=== PATIENT | female | born 1970 | race Caucasian/White ===

== ENCOUNTER 2019-01-11 15:11 | Observation (INO) ==
[2019-01-11] MEDS ORDERED: *HR* OxyCODONE Immed Rel 5 MG TABLET PO PRN (15:17)
[2019-01-11] MEDS ORDERED: Ondansetron 4 MG/2 ML VIAL IVP PRN (15:17)
[2019-01-11] MEDS ORDERED: Acetaminophen 325 MG TABLET PO PRN (15:17)
[2019-01-11] MEDS ORDERED: *HR* HYDROcodone/Acet 5/325 mg TABLET PO PRN (15:17)
[2019-01-11] MEDS ORDERED: OXYCODONE Oral CONC 10 MG/0.5 ML ORAL.SYG SL PRN ×2 (15:17)
[2019-01-11] MEDS ORDERED: Naloxone 0.4 MG/ML INJ IVP PRN (15:17)
[2019-01-11] MEDS ORDERED: tiZANidine 4 MG TABLET PO PRN (15:26)
[2019-01-11] MEDS ORDERED: 0.9 % Sodium Chloride 1,000 ML IVC SCH (15:30)
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
[2019-01-11] MEDS ORDERED: cefTRIAXone 1,000 MG in Water for inj. (sterile) 20 ML 10 ML IVP SCH (16:00)
[2019-01-11] MEDS ORDERED: *HR* Metformin 500 MG TABLET PO SCH (17:00)
[2019-01-11] MEDS ORDERED: *HR* LORazepam 0.5 MG TABLET PO SCH (21:00)
[2019-01-11] MEDS ORDERED: Gabapentin 100 MG CAPSULE PO SCH (21:00)
[2019-01-11] MEDS ORDERED: Budesonide/Formoterol 80/4.5 MDI IH SCH (22:00)
[2019-01-12 02:20] LABS: Basophils # 0.1 K/mcL (0.0-0.2); Basophils % 0.7 %; Eosinophils # 0.3 K/mcL (0.0-0.6); Eosinophils % 2.8 %; Hematocrit 35.3 % (35.3-44.9); Hemoglobin 10.7 g/dL (11.5-15.4); Immature Granulocytes % 0.3 % (0-4); Lymphocytes # 3.6 K/mcL (0.6-4.6); Lymphocytes % 37.7 %; Mean Corpuscular HGB Conc 30.3 g/dL (31.6-35.5); Mean Corpuscular Hemoglobin 23.5 pg (28.0-33.3); Mean Corpuscular Volume 77.6 fL (83.0-100.0); Monocytes # 0.9 K/mcL (0.0-1.3); Neutrophils # 4.8 K/mcL (1.6-8.9); Platelet Count 313 K/mcL (140-400); Red Blood Count 4.55 M/mcL (3.82-4.97); Red Cell Distribution Width 16.6 % (11.5-14.5); Segmented Neutrophils % 49.5 %; White Blood Count 9.6 K/mcL (4.3-11.1)
[2019-01-12 02:39] LABS: BUN/Creatinine Ratio 21 (6-26); Blood Urea Nitrogen 17 mg/dL (6-20); Calcium 8.7 mg/dL (8.6-10.3); Carbon Dioxide 24 mEq/L (23-29); Chloride 105 mEq/L (98-107); Glucose 105 mg/dL (70-105); Osmolality,Calculated 286 (280-300); Potassium 4.1 mEq/L (3.5-5.1); Sodium 137 mEq/L (136-145); eGFR For African Americans > 60 (> 60); eGFR For Non-African Americans > 60 (> 60)
--- NOTE | 2019-01-12 05:52 | Urology Progress Note ---
Date of Encounter: 01/12/19 Time of Encounter: 05:50 - Assessment and Plan (1) Ureteral stone Current Visit: No Status: Acute Assessment and plan: 48-year-old woman with a distal left ureteral stone. She is still having pain. We will proceed with a left ureteroscopy, laser lithotripsy, and stent placement. She was informed of the risks of the procedure including but not limited to bleeding, infection, injury to other structures, need for further procedures, stent irritation, incomplete fragmentation, ureteral perforation, need for nephrostomy tube, need for open repair, risks unforeseen, and the risk of anesthesia. She is willing to proceed. Progress Note Narrative: Hospital day #2. 48-year-old woman with left distal ureteral stone. I reviewed her KUB. It is difficult to ascertain a ureteral stone versus phlebolith in the pelvis. She is still having pain. Plan for left ureteroscopy, laser lithotripsy, and stent placement today. Objective Initial Vital Signs Pulse Ox 97 01/11/19 18:30 - General physical appearance Present: well developed, well nourished, no distress - Respiratory Present: normal respiratory effort - Abdomen Present: soft - Musculoskeletal Present: normal posture - Labs 01/12/19 02:00 01/12/19 02:00 Diabetes panel 01/12/19 Range/Units 02:00 Sodium 137 (136-145) mEq/L Potassium 4.1 (3.5-5.1) mEq/L Chloride 105 (98-107) mEq/L Carbon Dioxide 24 (23-29) mEq/L BUN 17 (6-20) mg/dL Creatinine 0.82 (0.60-1.20) mg/dL Glucose 105 (70-105) mg/dL Calcium 8.7 (8.6-10.3) mg/dL Calcium panel 01/12/19 Range/Units 02:00 Calcium 8.7 (8.6-10.3) mg/dL Pituitary panel 01/12/19 Range/Units 02:00 Sodium 137 (136-145) mEq/L Potassium 4.1 (3.5-5.1) mEq/L Chloride 105 (98-107) mEq/L Carbon Dioxide 24 (23-29) mEq/L BUN 17 (6-20) mg/dL Creatinine 0.82 (0.60-1.20) mg/dL Glucose 105 (70-105) mg/dL Calcium 8.7 (8.6-10.3) mg/dL Adrenal panel 01/12/19 Range/Units 02:00 Sodium 137 (136-145) mEq/L Potassium 4.1 (3.5-5.1) mEq/L Chloride 105 (98-107) mEq/L Carbon Dioxide 24 (23-29) mEq/L BUN 17 (6-20) mg/dL Creatinine 0.82 (0.60-1.20) mg/dL Glucose 105 (70-105) mg/dL Calcium 8.7 (8.6-10.3) mg/dL Consult Discharge Plan - Plan Referrals: NONE,PCP [Primary Care Provider] -
[2019-01-12 06:22] LABS: Bilirubin,Urine Negative (Negative); Blood,Urine Negative (Negative); Clarity,Urine Clear (Clear); Color,Urine Yellow (Yellow); Glucose,Urine (UA) Normal (Normal); Ketones,Urine Negative (Negative); Leukocyte Esterase,Urine Negative (Negative); Nitrite,Urine Negative (Negative); Protein,Urine Negative (Neg-Trace); Specific Gravity,Urine 1.027 (1.010-1.025); Urobilinogen,Urine Normal (Normal)
[2019-01-12] MEDS ORDERED: *HR* FentaNYL (PF) 100 MCG/2 ML VIAL ONE ×2 (07:21→08:46)
[2019-01-12] MEDS ORDERED: *HR* Propofol 200 MG/20 ML VIAL IVP ONE ×2 (07:21→07:22)
[2019-01-12] MEDS ORDERED: Lidocaine -MPF 2% 2 ML VIAL ONE (07:21)
[2019-01-12] MEDS ORDERED: Dexamethasone 4 MG/ML VIAL ONE (07:21)
[2019-01-12] MEDS ORDERED: Ondansetron 4 MG/2 ML VIAL ONE (07:21)
[2019-01-12] MEDS ORDERED: *HR* Succinylcholine 200 MG/10 ML VIAL IVP ONE (07:22)
[2019-01-12] MEDS ORDERED: *HR* Rocuronium Bromide 50 MG/5 ML VIAL ONE (07:22)
[2019-01-12] MEDS ORDERED: Lidocaine -MPF 4% 5 ML AMPUL ONE (07:25)
[2019-01-12] MEDS ORDERED: Ipratropium/Albuterol Neb 3 ML ONE (07:40)
[2019-01-12] MEDS ORDERED: Ipratropium/Albuterol Neb 3 ML IH ONE (07:42)
--- NOTE | 2019-01-12 07:42 | Anesthesia Evaluation PreOp ---
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 (Migraines, Anxiety/Depression) Other Medical History: Diabetes Type II ("Pre-Diabetes"), GERD, Other (MO) Anesthesia History: Past Anesthesia (Appy, Minerva, L-ectopic , Esophageal Dilation 10/2018) Alcohol Use: none Drug use: none Medications and Allergies Acetaminophen [Tylenol] 500 mg PO Q6HR PRN 05/01/17 [History] Cetirizine HCl [All Day Allergy] 10 mg PO DAILY 05/01/17 [History] Cyclobenzaprine [Flexeril] 10 mg PO TID PRN 05/01/17 [History] Fluticasone/Salmeterol [Advair 500-50 Diskus] 1 puff IH BID 05/01/17 [History] Gabapentin [Neurontin] 300 mg PO TID 05/01/17 [History] LORazepam [Ativan] 0.5 mg PO BID PRN 05/01/17 [History] Losartan Potassium [Cozaar] 50 mg PO DAILY 05/01/17 [History] Montelukast [Singulair] 10 mg PO HS 05/01/17 [History] Omeprazole [PriLOSEC] 40 mg PO DAILY 05/01/17 [History] Ranitidine HCl [Acid Chisel Worker] 150 mg PO BID 05/01/17 [History] Topiramate [Topamax] 50 mg PO BID 05/01/17 [History] Venlafaxine HCl [Venlafaxine HCl ER] 75 mg PO DAILY 05/01/17 [History] metFORMIN [Glucophage] 500 mg PO BIDWM 05/01/17 [History] Allergy/AdvReac Type Severity Reaction Status Date / Time ibuprofen Allergy Anaphylaxis Verified 11/09/18 19:36 Sulfa (Sulfonamide Allergy Hives Verified 11/09/18 19:36 Antibiotics) - Meds/Allergy Pre-op Review Medications Reviewed: Yes Allergies Reviewed: Yes (ANAPHYLAXIS TO IBUPROFEN [NSAIDS]) Beta Blockers on Current Med List: No Anesthesia Results - Labs 01/12/19 02:00 01/12/19 02:00 Impressions KUB X-Ray 01/11/19 16:28 IMPRESSION: 1. No renal or ureteral calculi identified. D/ / Shanta Richard MD / Shanta Richard MD Interpreting Provider: Shanta Richard MD Laboratory Results - Imaging EKG: report reviewed (108bpm STach) Anesthesia Exam Vital Signs Temp Pulse Resp BP Pulse Ox 01/12/19 05:29 98.1 F 85 15 101/64 96 01/11/19 23:31 98.3 F 96 16 106/66 95 01/11/19 19:04 98.1 F 99 14 122/79 97 01/11/19 18:30 97 Intake and Output 01/11/19 01/11/19 01/12/19 15:59 23:59 07:59 Intake Total 130 / 130 0 / 0 Output Total 0 / 0 200 / 200 Balance 130 / 130 -200 / -200 Intake: IV Fluids Rocephin 1,000 MG In Water for inj. (sterile) 10 ML @ 600 mls/ hr IVP DAILY [facility] Rx#:[id number] Oral 120 / 120 0 / 0 Output: Urine 0 / 0 200 / 200 Other: Meal Dinner Percent of Meal Consumed 80% Weight 161.479 kg Blood Glucose* 114 Height: 5'7" Weight: 356# BMI = 56 - HEENT Pupil (Motor): Pupils equal, EOMI Mallampati: III Teeth: Normal Oral Opening: Greater than 3 - EXECUTIVE CHAIRMAN LOC: Oriented EXECUTIVE CHAIRMAN Motor: Normal RUE, Normal LUE, Normal RLE, Normal LLE, Normal Face EXECUTIVE CHAIRMAN Sensory: Normal: RUE, LUE, RLE, LLE, Face - Cardiac Rhythm: Regular Murmur: None - Pulmonary Breath Sounds: bilateral Clear Respiratory Effort: Symmetrical Anesthesia Assess/Plan ASA Score: 4 Level of consciousness: Cooperative, Oriented, Tranquil Anesthetic Plan: General Monitoring Plan: Standard Monitors Recovery Plan: PACU Anes Supervising Prov Stmt: Pt seen/evaluated, R&B Discussed, questions answered and consent obtained. Angelo Dietz MD
[2019-01-12] MEDS ORDERED: Acetaminophen IV 1,000 MG/100 ML INFUS..BTL ONE (07:46)
--- NOTE | 2019-01-12 08:56 | Operative Note ---
Date of procedure: 01/12/19 Pre-op diagnosis: Left ureteral stone Post-op diagnosis: same Procedure: Left ureteroscopy, laser lithotripsy, basket stone extraction, and stent placement Implants: 6 Canadian by 26 cm double-J stent Complications: None Anesthesia: KILO Surgeon: Von Beyer Was there an plant attendant or assistant operator present: No Estimated blood loss (cc): 1 Specimen: left ureteral stone Condition: stable Disposition: PACU Procedure in Detail: Indications: Jackie is a 48-year-old female who has a history of nephrolithiasis. A CT showed a distal 2mm ureteral stone. She elected to undergo a after ureteroscopy, laser lithotripsy, and stent placement. She was aware of the risks of the procedure including but not limited to bleeding, infection, injury to other structures, need for further procedures, stent irritation, need for nephrostomy tube, need for open repair, risks otherwise unforeseen, and the risk of anesthesia. She is willing to proceed. Procedure in Detail: After informed consent was obtained the patient was brought back to the operating room and placed in supine position. A time out was performed. General anesthesia was administered and an LMA was placed. She was then placed in the lithotomy position. She was prepped and draped in the usual sterile fashion. Cystoscopy was performed. The anterior urethra was normal. There was no evidence of bladder tumors. The ureteral orifices were in the normal orthotopic position. There was no duplication of the ureteral orifices. The zip wire was placed in the left ureteral orifice. The wire was then brought up into the kidney under fluoroscopic guidance. I then passed the 8/10 Canadian ureteral dilator. The semirigid ureteroscope was advanced into the distal ureter. No stone was noted. The scope was removed. The flexible ureteroscope was then advanced into the ureter alongside the wire. A stone was seen in the proximal ureter. The stone moved into the kidney. The stone was fractionated using 200 micron fiber into 2 small pieces. The stone fragments were then extracted using the 1.9 Canadian basket. I surveyed all the calyces. There was a small amount of stone debris remaining, but that was all less than 1 mm in size. The pullout ureteroscopy showed no evidence of ureteral injury. A 6 Canadian by 26 cm JJ stent was then placed. A good curl was seen in the kidney and the bladder. The dangle string was left intact and will be used through removed the stent at a later date. The bladder was drained. The patient was then awakened from general anesthesia and brought to recovery room in good condition. All sponge, needle, and instrument counts were correct.
[2019-01-12] MEDS ORDERED: Loratadine 10 MG TABLET PO SCH (09:00)
[2019-01-12] MEDS ORDERED: Venlafaxine XR (24 HR) 150 MG CAP.ER.24H PO SCH (09:00)
--- NOTE | 2019-01-12 09:00 | Discharge Summary ---
Orders not resulted at time of discharge: Pending orders 01/11/19 16:30 EKG [ECG 12 lead ECG] [ECG] Routine Date of Encounter: 01/13/19 Time of Encounter: 08:57 - Discharge Diagnosis (1) Ureteral stone Priority: Primary Status: Acute - Hospital Course Hospital course: Ms. Babcock is a 48 year old female who presented with left flank pain. An outside CT scan showed a 2 mm distal left ureteral stone. Her pain has not been well controlled and she opted to proceed with a ureteroscopic stone extraction on the left side. On 01/12/2019 she underwent an uneventful left ureteroscopy, laser lithotripsy, basket stone extraction, and stent placement. She tolerated the procedure well. She was discharged home later that day. - Time Spent with Patient Total time spent providing and/or coordinating discharge services: Less than 30 minutes Labs on day of discharge: Labs from last 24 hours 01/12/19 01/12/19 01/12/19 06:03 06:03 05:27 WBC RBC Hgb Hct MCV MCH MCHC RDW Plt Count MPV Immature Gran % Seg Neutrophils % Lymphocytes % Monocytes % Eosinophils % Basophils % Neutrophils # Lymphocytes # Monocytes # Eosinophils # Basophils # Sodium Potassium Chloride Carbon Dioxide BUN Creatinine Est GFR ( Amer) Est GFR (Non-Af Amer) BUN/Creatinine Ratio Glucose POC Glucose 114 H Calculated Osmolality Calcium Urine Color Yellow Urine Clarity Clear Urine pH 5.0 Ur Specific [place] 1.027 H Urine Protein Negative Urine Glucose (UA) Normal Urine Ketones Negative Urine Blood Negative Urine Nitrite Negative Urine Bilirubin Negative Urine Urobilinogen Normal Ur Leukocyte Esterase Negative Ur Culture Indicated? NO Urine Test Negative 01/12/19 01/12/19 02:00 02:00 WBC 9.6 RBC 4.55 Hgb 10.7 L Hct 35.3 MCV 77.6 L MCH 23.5 L MCHC 30.3 L RDW 16.6 H Plt Count 313 MPV 10.0 Immature Gran % 0.3 Seg Neutrophils % 49.5 Lymphocytes % 37.7 Monocytes % 9.0 Eosinophils % 2.8 Basophils % 0.7 Neutrophils # 4.8 Lymphocytes # 3.6 Monocytes # 0.9 Eosinophils # 0.3 Basophils # 0.1 Sodium 137 Potassium 4.1 Chloride 105 Carbon Dioxide 24 BUN 17 Creatinine 0.82 Est GFR ( Amer) > 60 Est GFR (Non-Af Amer) > 60 BUN/Creatinine Ratio 21 Glucose 105 POC Glucose Calculated Osmolality 286 Calcium 8.7 Urine Color Urine Clarity Urine pH Ur Specific [place] Urine Protein Urine Glucose (UA) Urine Ketones Urine Blood Urine Nitrite Urine Bilirubin Urine Urobilinogen Ur Leukocyte Esterase Ur Culture Indicated? Urine Test - Impressions ITS Impressions KUB X-Ray 01/11/19 16:28 IMPRESSION: 1. No renal or ureteral calculi identified. D/ / Shanta Richard MD / Shanta Richard MD Interpreting Provider: Shanta Richard MD - Discharge Medications Prescriptions: New Docusate [Colace] 100 mg PO BID #60 capsule Nitrofurantoin (BID) [Macrobid] 100 mg PO BID #10 capsule OxyCODONE/APAP 5/325 [Percocet 5/325 MG] 1 each PO Q6HR PRN 5 Days #20 tablet PRN Reason: Pain Phenazopyridine HCl [Pyridium] 200 mg PO TIDAC #12 tab Continued Topiramate [Topamax] 50 mg PO BID LORazepam [Ativan] 0.5 mg PO BID PRN PRN Reason: Anxiety Cyclobenzaprine [Flexeril] 10 mg PO TID PRN PRN Reason: Muscle Spasm Acetaminophen [Tylenol] 500 mg PO Q6HR PRN PRN Reason: Mild To Moderate Pain Venlafaxine HCl [Venlafaxine HCl ER] 75 mg PO DAILY Ranitidine HCl [Acid Heavy Machinery Operator] 150 mg PO BID Montelukast [Singulair] 10 mg PO HS metFORMIN [Glucophage] 500 mg PO BIDWM Omeprazole [PriLOSEC] 40 mg PO DAILY Gabapentin [Neurontin] 300 mg PO TID Fluticasone/Salmeterol [Advair 500-50 Diskus] 1 puff IH BID Cetirizine HCl [All Day Allergy] 10 mg PO DAILY Losartan Potassium [Cozaar] 50 mg PO DAILY Home Medications: Acetaminophen [Tylenol] 500 mg PO Q6HR PRN 05/01/17 [History] Cetirizine HCl [All Day Allergy] 10 mg PO DAILY 05/01/17 [History] Cyclobenzaprine [Flexeril] 10 mg PO TID PRN 05/01/17 [History] Fluticasone/Salmeterol [Advair 500-50 Diskus] 1 puff IH BID 05/01/17 [History] Gabapentin [Neurontin] 300 mg PO TID 05/01/17 [History] LORazepam [Ativan] 0.5 mg PO BID PRN 05/01/17 [History] Losartan Potassium [Cozaar] 50 mg PO DAILY 05/01/17 [History] Montelukast [Singulair] 10 mg PO HS 05/01/17 [History] Omeprazole [PriLOSEC] 40 mg PO DAILY 05/01/17 [History] Ranitidine HCl [Acid Heavy Machinery Operator] 150 mg PO BID 05/01/17 [History] Topiramate [Topamax] 50 mg PO BID 05/01/17 [History] Venlafaxine HCl [Venlafaxine HCl ER] 75 mg PO DAILY 05/01/17 [History] metFORMIN [Glucophage] 500 mg PO BIDWM 05/01/17 [History] Docusate [Colace] 100 mg PO BID #60 capsule 01/12/19 [Rx] Nitrofurantoin (BID) [Macrobid] 100 mg PO BID #10 capsule 01/12/19 [Rx] OxyCODONE/APAP 5/325 [Percocet 5/325 MG] 1 each PO Q6HR PRN 5 Days #20 tablet 01/12/19 [Rx] Phenazopyridine HCl [Pyridium] 200 mg PO TIDAC #12 tab 01/12/19 [Rx] Allergies/Adverse Reactions: Allergy/AdvReac Type Severity Reaction Status Date / Time ibuprofen Allergy Anaphylaxis Verified 11/09/18 19:36 Sulfa (Sulfonamide Allergy Hives Verified 11/09/18 19:36 Antibiotics) Date of admission: 01/11/19 16:45 Primary care physician: PCP NONE Discharging clinician: Von Beyer Anticipated date of discharge: 01/12/19 Exam Initial Vital Signs Pulse Ox 97 01/11/19 18:30 - General physical appearance Present: well developed, well nourished, no distress - Eyes Absent: icteric - ENT Present: normal nares - Neck Present: trachea midline - Respiratory Present: normal respiratory effort - Cardiovascular Cardiovascular exam IM: RRR - Abdomen Abdomen: Present: soft - Genitourinary Present: normal external genitalia - Neurologic Present: normal coordination - Musculoskeletal Present: normal gait - Patient Status Disposition: Home, Self-Care Condition: Good Functional capacity at discharge: independent ambulation Overall status at discharge: patient is progressing back to baseline - Discharge Instructions Follow Up With: NONE,PCP [Primary Care Provider] - Von Beyer MD [Partnered Physician] - (3-4 weeks with a KUB) Additional Instructions: 1. The patient can remove her stent in 3 days by pulling on the string. 2. She should expect to feel flank pain with voiding. 3. The patient should call for any fevers, chills, nausea, emesis, or uncontrolled pain. 4. Please provide a work excuse if necessary for up to 1 week off. 5. She can follow-up me in 3-4 weeks with a KUB. Resume usual diet as tolerated. Activity as tolerated. No driving for 24 hours following surgical procedure or after taking pain medication. - Diet and Activity Activity: increase activity as tolerated Diet: advance to your usual diet
--- NOTE | 2019-01-12 09:39 | Anesthesia Evaluation Post Op ---
Date of Encounter: 01/12/19 Time of Encounter: 09:38 - Vital Signs Vital Signs: Vital Signs/O2 Sat, Most Current Temp Pulse Resp BP Pulse Ox 98.6 F 88 19 136/71 93 01/12/19 09:05 01/12/19 09:25 01/12/19 09:25 01/12/19 09:25 01/12/19 09:25 - Lungs Lungs: Clear Ascult./Percussion - Airway Airway: Non-obstructed - Cardiovascular Regular Rate - Mental Status Mental Status: Alert & Oriented, Answers Appropriately - Pain Pain Scale: 8 (chronic back pain, only has discomfort from urge to void) Pain Scale used: Numeric (1 - 10) - Nausea Vomiting Nausea Vomiting: Not Present - Hydration Hydration: Ice chips, Has not voided - Discharge PostOp Status: Transfer Patient to floor
[2019-01-12] MEDS ORDERED: OXYCODONE Oral CONC 10 MG/0.5 ML ORAL.SYG SL PRN ×2 (09:44)
[2019-01-12] MEDS ORDERED: 0.9 % Sodium Chloride 1,000 ML IVC SCH (09:44)
[2019-01-12] MEDS ORDERED: *HR* OxyCODONE Immed Rel 5 MG TABLET PO PRN (09:44)
[2019-01-12] MEDS ORDERED: Naloxone 0.4 MG/ML INJ IVP PRN (09:44)
[2019-01-12] MEDS ORDERED: Ondansetron 4 MG/2 ML VIAL IVP PRN (09:44)
[2019-01-12] MEDS ORDERED: *HR* HYDROcodone/Acet 5/325 mg TABLET PO PRN (09:44)
[2019-01-12] MEDS ORDERED: tiZANidine 4 MG TABLET PO PRN (09:44)
[2019-01-12] MEDS ORDERED: Acetaminophen 325 MG TABLET PO PRN (09:44)
[2019-01-12] MEDS ORDERED: Budesonide/Formoterol 80/4.5 MDI IH SCH (10:00)
[2019-01-12] MEDS ORDERED: cefTRIAXone 1,000 MG in Water for inj. (sterile) 20 ML 10 ML IVP SCH (10:00)
[2019-01-12 14:03] VITALS: BP 135/74
[2019-01-12] MEDS ORDERED: Gabapentin 100 MG CAPSULE PO SCH (15:00)
[2019-01-12] MEDS ORDERED: *HR* Metformin 500 MG TABLET PO SCH (17:00)
[2019-01-12] MEDS ORDERED: *HR* LORazepam 0.5 MG TABLET PO SCH (21:00)
[2019-01-13] MEDS ORDERED: Venlafaxine XR (24 HR) 150 MG CAP.ER.24H PO SCH (09:00)
[2019-01-13] MEDS ORDERED: Loratadine 10 MG TABLET PO SCH (09:00)
[2019-01-16 10:48] LABS: Calculi Mass 9 mg
== END 2019-01-12 15:45 | disposition home or self-care (01) ==
LOC: 3ANU
PROVIDERS: ADMIT Urology; ATTEND Urology

== ENCOUNTER 2019-09-12 22:41 | Observation (INO) ==
[2019-09-12 23:14] LABS: Basophils # 0.1 K/mcL (0.0-0.2); Basophils % 0.7 %; Eosinophils # 0.3 K/mcL (0.0-0.6); Hematocrit 40.4 % (35.3-44.9); Hemoglobin 12.2 g/dL (11.5-15.4); Immature Granulocytes % 0.2 % (0-4); Lymphocytes # 3.6 K/mcL (0.6-4.6); Lymphocytes % 37.7 %; Mean Corpuscular HGB Conc 30.2 g/dL (31.6-35.5); Mean Corpuscular Hemoglobin 24.1 pg (28.0-33.3); Mean Corpuscular Volume 79.7 fL (83.0-100.0); Mean Platelet Volume 9.8 fL (9.4-12.4); Monocytes # 0.6 K/mcL (0.0-1.3); Monocytes % 5.8 %; Platelet Count 384 K/mcL (140-400); Red Blood Count 5.07 M/mcL (3.82-4.97); Red Cell Distribution Width 16.4 % (11.5-14.5); Segmented Neutrophils % 52.6 %; White Blood Count 9.5 K/mcL (4.3-11.1)
[2019-09-12 23:31] LABS: BUN/Creatinine Ratio 17 (6-26); Blood Urea Nitrogen 13 mg/dL (6-20); Calcium 9.6 mg/dL (8.6-10.3); Carbon Dioxide 26 mEq/L (23-29); Chloride 103 mEq/L (98-107); Glucose 112 mg/dL (70-105); Osmolality,Calculated 281 (280-300); Potassium 4.2 mEq/L (3.5-5.1); Sodium 135 mEq/L (136-145); Troponin I < 0.03 ng/mL (< 0.04); eGFR For African Americans > 60 (> 60); eGFR For Non-African Americans > 60 (> 60)
[2019-09-13] MEDS ORDERED: Naloxone 0.4 MG/ML INJ IVP PRN (05:35)
[2019-09-13] MEDS ORDERED: D5% in Water 1,000 ML IVC PRN ×2 (05:36→11:14)
[2019-09-13] MEDS ORDERED: Dextrose Gel 15 GM/37.5 ML TUBE PO PRN ×4 (05:36→11:14)
[2019-09-13] MEDS ORDERED: Acetaminophen 325 MG TABLET PO PRN (05:36)
[2019-09-13] MEDS ORDERED: *HR* Dextrose 50 % in Water (Syg) 50 ML SYRINGE IVP PRN ×2 (05:36→11:14)
[2019-09-13] MEDS ORDERED: Insulin LISPRO 300 UNITS/3 ML VIAL SQ SCH ×3 (06:00→21:00)
[2019-09-13 06:16] LABS: Hematocrit 37.4 % (35.3-44.9); Hemoglobin 11.8 g/dL (11.5-15.4); Mean Corpuscular HGB Conc 31.6 g/dL (31.6-35.5); Mean Corpuscular Hemoglobin 24.3 pg (28.0-33.3); Mean Corpuscular Volume 77.1 fL (83.0-100.0); Mean Platelet Volume 10.2 fL (9.4-12.4); Platelet Count 375 K/mcL (140-400); Red Blood Count 4.85 M/mcL (3.82-4.97); Red Cell Distribution Width 16.4 % (11.5-14.5); White Blood Count 10.3 K/mcL (4.3-11.1)
[2019-09-13 06:36] LABS: BUN/Creatinine Ratio 20 (6-26); Blood Urea Nitrogen 14 mg/dL (6-20); Calcium 9.3 mg/dL (8.6-10.3); Carbon Dioxide 25 mEq/L (23-29); Chloride 102 mEq/L (98-107); Glucose 104 mg/dL (70-105); Osmolality,Calculated 291 (280-300); Potassium 4.1 mEq/L (3.5-5.1); Sodium 140 mEq/L (136-145); eGFR For African Americans > 60 (> 60); eGFR For Non-African Americans > 60 (> 60)
[2019-09-13] MEDS ORDERED: *HR* LORazepam 0.5 MG TABLET PO PRN (08:02)
[2019-09-13] MEDS ORDERED: (Vilazodone Hcl [Viibryd] 40 MG) PO SCH (09:00)
[2019-09-13] MEDS ORDERED: Loratadine 10 MG TABLET PO SCH (09:00)
[2019-09-13] MEDS ORDERED: Budesonide/Formoterol 160/4.5 1 PUFF INH IH SCH (10:00)
[2019-09-13 11:35] VITALS: BP 153/98
[2019-09-13] MEDS ORDERED: Gabapentin 100 MG CAPSULE PO SCH (21:00)
[2019-09-14] MEDS ORDERED: Levothyroxine 25 MCG TABLET PO SCH (06:30)
== END 2019-09-13 15:11 | disposition home or self-care (01) ==
LOC: EMEROOARM 22:41 → 3BNU 22:41
PROVIDERS: ADMIT Internal Medicine; ATTEND Internal Medicine